=== PATIENT | male | born 1950 | race Caucasian/White ===

== ENCOUNTER 2017-09-28 20:10 | Emergency (ER) | payer MEDICARE ==
[2017-09-28 20:18] VITALS: BP 141/68
--- NOTE | 2017-09-28 20:35 | UC ---
Respiratory Complaint HPI - HPI Summary HPI Summary: 67 yo male iwth a 1-2 day hx of cough congested ?fever some chills malaise and low energy no cp/sob no n/v/d - History of Current Complaint Chief Complaint: UCRespiratory Stated Complaint: FEVER, COUGH, SORE THROAT Time Seen by Provider: 09/28/17 20:21 Hx Obtained From: Patient Onset/Duration: Gradual Onset, Lasting Days Timing: Constant Severity Initially: Mild Severity Currently: Moderate Pain Intensity: 2 Pain Scale Used: 0-10 Numeric Character: Cough: Nonproductive Aggravating Factors: Exertion, Deep Breaths Alleviating Factors: Nothing Associated Signs And Symptoms: Positive: Fever - ?, Chills Related History: Similar Episode/Dx as: - pneumonia 2016 - Allergies/Home Medications Allergies/Adverse Reactions: Allergies Allergy/AdvReac Type Severity Reaction Status Date / Time No Known Allergies Allergy Verified 09/28/17 20:19 PMH/Surg Hx/FS Hx/Imm Hx Previously Healthy: Yes Respiratory History: Pneumonia - Surgical History Surgical History: Yes Surgery Procedure, Year, and Place: TONSILLECTOMY, EPIDIDECTOMY, ORAL SURGERY - Family History Known Family History: Positive: Cardiac Disease - Social History Alcohol Use: None Substance Use Type: None Smoking Status (MU): Never Smoked Tobacco Review of Systems Constitutional: Fatigue Skin: Negative Eyes: Negative ENT: Negative Respiratory: Cough Cardiovascular: Negative Gastrointestinal: Negative Genitourinary: Negative Motor: Negative Neurovascular: Negative Musculoskeletal: Negative Neurological: Negative Psychological: Negative Is Patient Immunocompromised?: No All Other Systems Reviewed And Are Negative: Yes Physical Exam Triage Information Reviewed: Yes Appearance: Well-Appearing, No Pain Distress, Well-Nourished Vital Signs: Initial Vital Signs Temp 98.5 F 09/28/17 20:16 Pulse 92 09/28/17 20:16 Resp 18 09/28/17 20:16 BP 141/68 09/28/17 20:16 Pulse Ox 99 09/28/17 20:16 Vital Signs Reviewed: Yes Eyes: Positive: Conjunctiva Clear ENT: Positive: Hearing grossly normal, Nasal congestion, TMs normal, Uvula midline. Negative: Trismus, Muffled voice, Hoarse voice, Dental tenderness, Sinus tenderness Neck: Positive: Supple, Nontender, No Lymphadenopathy Respiratory: Positive: Lungs clear, Normal breath sounds, No respiratory distress, No accessory muscle use Cardiovascular: Positive: RRR, No Murmur Musculoskeletal: Positive: ROM Intact, No Edema Neurological: Positive: Alert Psychological Exam: Normal Skin Exam: Normal UC Diagnostic Evaluation - Laboratory O2 Sat by Pulse Oximetry: 99 - normal/not hypoxic - Radiology Xray Interpretation: Positive (See Comments) - Posterior basal segment pneumonia LEFT lower lobe. Stigmata of chronic Radiology Interpretation Completed By: Radiologist Respiratory Course/Dx - Differential Dx/Diagnosis Provider Diagnoses: Pneumonia Discharge - Discharge Plan Condition: Stable Disposition: HOME Prescriptions: Amoxicillin/Clavulanate TAB* [Augmentin TAB 875*] 875 mg PO BID #20 tab Patient Education Materials: Pneumonia (ED) Referrals: Sridevi Gonzalez MD [Primary Care Provider] - Additional Instructions: recheck Saturday as planned
--- NOTE | 2017-09-28 21:04 | RAD ---
INDICATION: Cough with worsening over 4 days. Fever. COMPARISON: March 26, 2016 TECHNIQUE: Dual energy PA and routine lateral views of the chest were obtained. REPORT: Elevated lung volumes and both diffuse mild prominence of the interstitial markings and patchy rarefaction of the mid to upper lung zone interstitial markings. Small region of airspace consolidation at the level of the posterior basal segment of the LEFT lower lobe. Negative for volume loss to favor atelectasis. Negative for pleural effusion or pneumothorax. The heart, pulmonary vasculature, and mediastinal contours are unremarkable. IMPRESSION: Posterior basal segment pneumonia LEFT lower lobe. Stigmata of chronic obstructive pulmonary disease.
[2017-09-28] MEDS ORDERED: Amoxicillin/Clavulanate TAB* 875 MG PO ONE (21:13)
== END 2017-09-28 21:26 | disposition home or self-care (01) ==
LOC: UCEAST 20:10
DX: J18.9 Pneumonia, unspecified organism (principal)
CPT/HCPCS: 71020; 99212; A9270-GY; G0463